=== PATIENT | female | born 1985 | race Caucasian/White ===

== ENCOUNTER 2017-06-09 17:52 | Emergency (ER) | payer OTHER ==
[~2017-06-09] VITALS: Ht 160 cm; Wt 95.5 kg
[~2017-06-09 17:52] MED LIST: NOHOMEMEDS
[2017-06-09] MEDS ORDERED: KEFLEX500 MG PO (22:27)
[2017-06-09] MEDS ORDERED: NORCO 5/3251 TABLET PO (22:27)
[2017-06-09 22:42] VITALS: BP 131/89
== END 2017-06-09 22:42 | disposition home or self-care (01) ==
LOC: EME 17:52
PROC: 2W38X1Z Immobilization of Right Upper Extremity using Splint (ICD-10-PCS; principal; 2017-06-09)
DX: S62.306A Unspecified fracture of fifth metacarpal bone, right hand, initial encounter for closed fracture (principal); S61.431A Puncture wound without foreign body of right hand, initial encounter; W22.09XA Striking against other stationary object, initial encounter; F17.200 Nicotine dependence, unspecified, uncomplicated
CPT/HCPCS: 73130; 99281; 99285; J0690; J2270